=== PATIENT | male | born 1970 | race Two or more races ===

== ENCOUNTER 2023-12-12 03:20 | Observation (INO) | payer OTHER ==
[2023-12-12] MEDS ORDERED: KETOROLAC TROMETHAMINE 30 MG/1 ML VIAL ONE (04:27)
[2023-12-12] MEDS ORDERED: METHOCARBAMOL 500 MG TABLET ONE (04:28)
[2023-12-12] MEDS: KETOROLAC TROMETHAMINE 15 MG/ML VIAL IM ONE (04:37)
[2023-12-12] MEDS: METHOCARBAMOL 750 MG TABLET PO ONE (04:37)
[2023-12-12] MEDS ORDERED: diazePAM 5 MG TABLET ONE (05:24)
[2023-12-12] MEDS: diazePAM 5 MG TABLET PO ONE (05:28)
[2023-12-12] MEDS ORDERED: morphine SULFATE 4 MG/ML VIAL ONE ×2 (07:47→11:29)
[2023-12-12] MEDS: morphine CARPU-JECT 4 MG/1 ML DISP.SYRIN IVPUSH ONE ×2 (08:20→11:35)
[2023-12-12 08:32] LABS: BASO % 0.3 % (0-2.0); HEMATOCRIT 46.2 % (35.4-49); HEMOGLOBIN 16.1 GM/dL (11.7-16.9); LYMPH % 20.6 % (8-40); MCH 31.9 pg (25.7-33.7); MCHC 34.9 g/dl (32.0-35.9); MEAN CELL VOLUME 91.4 fl (80-96); MEAN PLT VOLUME 8.1 fl (7.5-11.1); MONO % 5.1 % (3.8-10.2); PLATELET COUNT 262 10^3/uL (134-434); RBC 5.05 M/mm3 (4.00-5.60); RDW 13.5 % (11.9-15.9); WHITE BLOOD COUNT 10.8 K/mm3 (4.0-10.0)
[2023-12-12 08:45] LABS: POTASSIUM 4.2 mmol/L (3.5-5.1)
[2023-12-12 08:48] LABS: BLOOD UREA NITROGEN 17.9 mg/dL (7-18)
[2023-12-12 08:51] LABS: CREATININE 1.2 mg/dL (0.55-1.3)
[2023-12-12 08:52] LABS: BILIRUBIN,TOTAL 0.7 mg/dL (0.2-1); TOT PROT 7.9 g/dl (6.4-8.2)
[2023-12-12] MEDS ORDERED: MAG HYDROX/AL HYDROX/SIMETH 30 ML UNIT-DOSE CUP ONE (10:47)
[2023-12-12] MEDS ORDERED: ACETAMINOPHEN INJECTION 100 ML IVPB ONE (10:47)
[2023-12-12] MEDS ORDERED: FAMOTIDINE 10 MG/ML VIAL IVPB ONE (11:06)
[2023-12-12] MEDS ORDERED: FAMOTIDINE 20 MG/50 ML IVPB 20 MG/50 ML MG IVPB ONE (11:07)
[2023-12-12 11:26] LABS: PH,URINE 5.5 (5.0-8.0); URINE APPEARANCE CLEAR; URINE BILIRUBIN NEGATIVE (NEGATIVE); URINE COLOR YELLOW; URINE GLUCOSE (UA) NEGATIVE (NEGATIVE); URINE KETONE 1+ (NEGATIVE); URINE LEUK ESTERASE NEGATIVE (NEGATIVE); URINE NITRITE NEGATIVE (NEGATIVE); URINE PROTEIN NEGATIVE (NEGATIVE)
[2023-12-12] MEDS: LIDOCAINE 4% PATCH TP SCH (13:20)
[2023-12-12] MEDS: GABAPENTIN 300 MG CAPSULE PO SCH (13:21)
[2023-12-12] MEDS: CYCLOBENZAPRINE HCL 5 MG TABLET PO SCH (13:21)
[2023-12-12] MEDS: LABETALOL HCL 200 MG TABLET (FP) PO SCH (15:20)
[2023-12-12 15:25] VITALS: BMI 34.4
[2023-12-12] MEDS: diazePAM 5 MG TABLET PO SCH (17:00)
[2023-12-12] MEDS: KETOROLAC TROMETHAMINE 15 MG/ML VIAL IVPUSH PRN (20:41)
[2023-12-12] MEDS: LIDOCAINE PATCH REMOVAL MC SCH (22:43)
[2023-12-13] MEDS: ENOXAPARIN NA (PORCINE) 40 MG/0.4 ML DISP.SYRIN SQ SCH (09:16)
[2023-12-13 09:19] LABS: BASO % 0.4 % (0-2.0); EOS % 1.7 % (0-4.5); HEMATOCRIT 44.7 % (35.4-49); HEMOGLOBIN 15.3 GM/dL (11.7-16.9); LYMPH % 37.3 % (8-40); MCH 31.6 pg (25.7-33.7); MCHC 34.2 g/dl (32.0-35.9); MEAN CELL VOLUME 92.4 fl (80-96); MEAN PLT VOLUME 8.4 fl (7.5-11.1); MONO % 7.4 % (3.8-10.2); NEUT % 53.2 % (42.8-82.8); PLATELET COUNT 236 10^3/uL (134-434); RBC 4.84 M/mm3 (4.00-5.60); RDW 13.4 % (11.9-15.9); WHITE BLOOD COUNT 8.4 K/mm3 (4.0-10.0)
[2023-12-13 10:01] LABS: ALBUMIN 3.4 g/dl (3.4-5.0); BLOOD UREA NITROGEN 23.9 mg/dL (7-18); CALCIUM 9.3 mg/dL (8.5-10.1); MAGNESIUM 2.4 mg/dL (1.8-2.4)
[2023-12-13 10:04] LABS: CREATININE 0.9 mg/dL (0.55-1.3); PHOSPHOROUS 3.5 mg/dL (2.5-4.9)
[2023-12-13 10:06] LABS: BILIRUBIN,TOTAL 0.6 mg/dL (0.2-1); TOT PROT 7.1 g/dl (6.4-8.2)
[2023-12-13] MEDS: GABAPENTIN 100 MG CAPSULE PO SCH (14:01)
[2023-12-13] MEDS: amLODIPine BESYLATE 5 MG TABLET (FP) PO SCH (15:57)
[2023-12-13] MEDS: ACETAMINOPHEN 325 MG TABLET (FP) PO PRN (21:37)
[2023-12-14] MEDS: GABAPENTIN 100 MG CAPSULE PO SCH (21:37)
[2023-12-15 01:45] VITALS: RESP 20
[2023-12-15] MEDS: amLODIPine BESYLATE 10 MG TABLET (FP) PO SCH (09:24)
[2023-12-15 10:17] VITALS: PULSE 79; TEMP 98.2
[2023-12-15 11:01] LABS: BASO % 0.3 % (0-2.0); EOS % 3.7 % (0-4.5); HEMATOCRIT 44.5 % (35.4-49); HEMOGLOBIN 15.1 GM/dL (11.7-16.9); LYMPH % 48.8 % (8-40); MCH 31.2 pg (25.7-33.7); MCHC 33.9 g/dl (32.0-35.9); MEAN PLT VOLUME 8.6 fl (7.5-11.1); MONO % 6.5 % (3.8-10.2); NEUT % 40.7 % (42.8-82.8); PLATELET COUNT 247 10^3/uL (134-434); RBC 4.84 M/mm3 (4.00-5.60); RDW 13.5 % (11.9-15.9); WHITE BLOOD COUNT 5.8 K/mm3 (4.0-10.0)
[2023-12-15 11:18] LABS: POTASSIUM 4.1 mmol/L (3.5-5.1)
[2023-12-15 11:20] LABS: BLOOD UREA NITROGEN 15.3 mg/dL (7-18)
[2023-12-15 11:23] LABS: CREATININE 0.8 mg/dL (0.55-1.3)
[2023-12-15 13:34] VITALS: BP 126/92
== END 2023-12-15 11:46 | disposition home or self-care (01) ==
LOC: JER 03:20 → JERBED 11:41 → J8W 12:46
PROVIDERS: ATTEND Nurse Practitioner Acute Care
PROC: 3E023GC Introduction of Other Therapeutic Substance into Muscle, Percutaneous Approach (ICD-10-PCS; principal; 2023-12-12)
PROC: 3E0333Z Introduction of Anti-inflammatory into Peripheral Vein, Percutaneous Approach (ICD-10-PCS; 2023-12-12)
PROC: 3E033NZ Introduction of Analgesics, Hypnotics, Sedatives into Peripheral Vein, Percutaneous Approach (ICD-10-PCS; 2023-12-12)
DX: M54.17 Radiculopathy, lumbosacral region (principal); M51.26 Other intervertebral disc displacement, lumbar region; I10 Essential (primary) hypertension; Z29.9 Encounter for prophylactic measures, unspecified
CPT/HCPCS: 36415; 72131-TC; 72148-TC; 80048; 80053; 81003; 83735; 84100; 85025; 87086; 93005; 93010; 97116-GP; 99285-25; G0378